=== PATIENT | female | born 1980 | race Caucasian/White ===

== ENCOUNTER 2017-10-01 05:08 | Emergency (ER) | payer OTHER ==
[~2017-10-01] VITALS: Ht 162.6 cm; Wt 51.9 kg
[2017-10-01] MEDS ORDERED: PREDNISONE50 MG PO (08:19)
[2017-10-01 08:34] VITALS: BP 112/65
== END 2017-10-01 08:34 | disposition home or self-care (01) ==
LOC: EME 05:08
DX: S39.012A Strain of muscle, fascia and tendon of lower back, initial encounter (principal); M54.16 Radiculopathy, lumbar region; V47.1XXA Car passenger injured in collision with fixed or stationary object in nontraffic accident, initial encounter; F17.200 Nicotine dependence, unspecified, uncomplicated
CPT/HCPCS: 99281; 99282

== ENCOUNTER 2017-10-08 18:35 | Inpatient (IN) | payer OTHER ==
[~2017-10-08] VITALS: Ht 162.6 cm; Wt 50.0 kg
[~2017-10-08 18:35] MED LIST: PREDNISONE50 MG PO
[2017-10-08 20:04] LABS: HEMATOCRIT 36.2 % (36.0-46.0); HEMOGLOBIN 12.2 G/DL (11.9-15.5); MCH 33.8 PG (29.0-34.0); MCHC 33.7 G/DL (30.0-36.0); MCV 100.3 FL (83-99); PLATELET COUNT 390 K/uL (156-360); RBC DIS.WIDTH-CV 12.9 % (11.8-14.6); RBC DIS.WIDTH-SD 47.8 % (39-53); RED BLOOD COUNT 3.61 M/uL (3.80-5.20); WHITE BLOOD COUNT 24.8 K/uL (4.1-10.2)
[2017-10-08 20:14] LABS: CHLORIDE 106 mEq/L (99-109); POTASSIUM 3.8 mEq/L (3.7-5.4); SODIUM 140 mEq/L (136-147)
[2017-10-08 20:15] LABS: GLUCOSE 84 mg/dL (70-99)
[2017-10-08 20:17] LABS: APPEARANCE CLOUDY ((CLEAR)); BILIRUBIN NEGATIVE; BLOOD SMALL; COLOR YELLOW ((YELLOW)); GLUCOSE (STRIP) NEGATIVE; KETONES NEGATIVE; LEUKOCYTES LARGE; NITRITE NEGATIVE; PROTEIN (STRIP) 100; SPECIFIC GRAVITY 1.019 (1.000-1.030)
[2017-10-08 20:19] LABS: CREATININE 0.7 mg/dL (0.6-1.3); GFR ESTIMATE (CALCULATED) > 59 mL/min/
[2017-10-08 20:20] LABS: UREA NITROGEN (BUN) 8 mg/dL (9-23)
[2017-10-08 20:27] LABS: QUANTITATIVE HCG < 4.0 MIU/ML
[2017-10-08 20:44] LABS: WHITE BLOOD CELLS 20-30 /HPF (0-5)
[2017-10-08 20:46] LABS: BACTERIA 3+ /HPF; EPITHELIAL CELLS 4+ /HPF; UCUL ADDED? YES
[2017-10-08 20:47] LABS: MUCUS 1+ /LPF
[2017-10-08 21:51] LABS: ALBUMIN 4.1 g/dL (3.2-4.8)
[2017-10-08 21:53] LABS: TOTAL PROTEIN 6.8 g/dL (6.4-8.3)
[2017-10-08 21:55] LABS: TOTAL BILIRUBIN 0.3 mg/dL (0.0-1.0)
[2017-10-08 21:56] LABS: ALKALINE PHOSPHATASE 104 IU/L (3-129)
[2017-10-08 21:59] LABS: ALT (GPT) 14 IU/L (3-49); AST (GOT) 11 IU/L (2-34); DIRECT BILIRUBIN 0.1 mg/dL (0.0-0.3)
[2017-10-08 22:00] LABS: LIPASE 16 U/L (1.0-51.0)
[2017-10-08 22:32] LABS: SOURCE SWAB
[2017-10-08] MEDS ORDERED: PERCOCET 7.51 TABLET PO (23:03)
[2017-10-08] MEDS ORDERED: LYRICA150 MG PO (23:04)
[2017-10-08] MEDS ORDERED: FLEXERIL10 MG PO (23:04)
[2017-10-09 02:35] VITALS: BP 117/68
[2017-10-09 07:12] VITALS: BP 120/72
[2017-10-09 09:11] LABS: BASOPHIL (%) 0.4 % (0-1); EOSINOPHIL (%) 3.2 % (0-5); EOSINOPHIL COUNT 0.4 K/uL (0-0.3); HEMATOCRIT 32.3 % (36.0-46.0); HEMOGLOBIN 10.5 G/DL (11.9-15.5); IMMATURE GRANULOCYTE (%) 0.3 % (0.0-0.7); LYMPHOCYTE (%) 29.5 % (15-42); LYMPHOCYTE COUNT 3.2 K/uL (1.0-2.8); MCH 32.5 PG (29.0-34.0); MCHC 32.5 G/DL (30.0-36.0); MONOCYTE (%) 4.6 % (3-12); MONOCYTE COUNT 0.5 K/uL (0-0.8); NEUTROPHIL COUNT 6.7 K/uL (1.8-6.4); PLATELET COUNT 341 K/uL (156-360); RBC DIS.WIDTH-CV 12.9 % (11.8-14.6); RED BLOOD COUNT 3.23 M/uL (3.80-5.20); WHITE BLOOD COUNT 10.8 K/uL (4.1-10.2)
[2017-10-09 09:34] LABS: ALBUMIN 3.5 G/DL (3.2-4.8); ALKALINE PHOSPHATASE 71 IU/L (3-129); ALT (GPT) 10 IU/L (3-49); AST (GOT) 9 IU/L (2-34); CHLORIDE 107 MEQ/L (99-109); CREATININE 0.5 MG/DL (0.6-1.3); GFR ESTIMATE (CALCULATED) > 59 mL/min/; SODIUM 139 MEQ/L (136-147); TOTAL BILIRUBIN 0.3 MG/DL (0.0-1.0); TOTAL PROTEIN 5.6 G/DL (6.4-8.3); UREA NITROGEN (BUN) 10 mg/dL (9-23)
[2017-10-09 10:00] LABS: GLUCOSE 127 mg/dL (70-99)
[2017-10-09 11:05] VITALS: BP 118/73
[2017-10-09] MEDS ORDERED: PERCOCET 7.51 TABLET PO (13:33)
[2017-10-09] MEDS ORDERED: CIPRO500 MG PO (13:33)
[2017-10-09] MEDS ORDERED: FLEXERIL10 MG PO (13:33)
== END 2017-10-09 15:30 | disposition home or self-care (01) | DRG 694 ==
LOC: EME 18:35 → EDOF 23:19 → ENRESERV 23:20 → ENPENDDIS 10-09 → ENRESERV 10-09 00:17 → 5EAST 10-09 02:45
PROVIDERS: Internal Medicine; Physician Assistant
DX: N13.2 Hydronephrosis with renal and ureteral calculous obstruction (principal); A59.09 Other urogenital trichomoniasis; G89.29 Other chronic pain; M54.9 Dorsalgia, unspecified; F17.210 Nicotine dependence, cigarettes, uncomplicated; Z79.891 Long term (current) use of opiate analgesic
CPT/HCPCS: 74176; 80048; 80053; 80076; 81003; 83605; 83690; 84702; 85025; 85027; 87040; 87086; 87210; 87491; 87591; 99281; 99285; J0696; J1885; J2270; J2405; J3010; J7030

== ENCOUNTER 2017-10-26 16:35 | Emergency (ER) | payer OTHER ==
[~2017-10-26] VITALS: Ht 160 cm; Wt 52.0 kg
[~2017-10-26 16:35] MED LIST changes: +CIPRO500 MG PO; +FLEXERIL10 MG PO; +LYRICA150 MG PO; +PERCOCET 7.51 TABLET PO
[2017-10-26 19:05] LABS: CHLORIDE 105 mEq/L (99-109); POTASSIUM 4.3 mEq/L (3.7-5.4); SODIUM 138 mEq/L (136-147)
[2017-10-26 19:06] LABS: GLUCOSE 89 mg/dL (70-99)
[2017-10-26 19:10] LABS: CREATININE 0.6 mg/dL (0.6-1.3); GFR ESTIMATE (CALCULATED) > 59 mL/min/
[2017-10-26 19:11] LABS: UREA NITROGEN (BUN) 9 mg/dL (9-23)
[2017-10-26 19:24] LABS: APPEARANCE CLOUDY ((CLEAR)); BILIRUBIN NEGATIVE; BLOOD LARGE; COLOR YELLOW ((YELLOW)); GLUCOSE (STRIP) NEGATIVE; KETONES NEGATIVE; LEUKOCYTES LARGE; NITRITE NEGATIVE; PROTEIN (STRIP) 100; SPECIFIC GRAVITY 1.017 (1.000-1.030); UROBILINOGEN 0.2 MG/DL (0.2-1.0)
[2017-10-26 20:46] LABS: BACTERIA RARE /HPF; EPITHELIAL CELLS 3+ /HPF; MUCUS TRACE /LPF; RED BLOOD CELLS TNTC /HPF (0-5); WHITE BLOOD CELLS 20-30 /HPF (0-5)
[2017-10-26 21:30] VITALS: BP 102/76
== END 2017-10-26 21:50 | disposition home or self-care (01) ==
LOC: EME 16:35
PROVIDERS: Physician Assistant
DX: N13.2 Hydronephrosis with renal and ureteral calculous obstruction (principal); G89.29 Other chronic pain; M54.5 Low back pain; Z87.442 Personal history of urinary calculi; F17.200 Nicotine dependence, unspecified, uncomplicated
CPT/HCPCS: 74176; 80048; 81003; 87086; 99281; 99285; J1885; J2270